=== PATIENT | male | born 1970 | race Caucasian/White ===

== ENCOUNTER 2024-02-12 22:24 | Emergency (ER) | payer SELFPAY ==
[~2024-02-12] VITALS: Ht 177.8 cm; Wt 84.0 kg
[2024-02-12 22:38] VITALS: O2SAT 98
[2024-02-13 04:44] VITALS: BP 140/80; PULSE 78; RESP 18; TEMP 98.3
== END 2024-02-13 04:45 | disposition home or self-care (01) ==
LOC: ER 22:24
DX: F10.129 Alcohol abuse with intoxication, unspecified (principal); F41.9 Anxiety disorder, unspecified; F31.9 Bipolar disorder, unspecified; F19.90 Other psychoactive substance use, unspecified, uncomplicated; Y90.9 Presence of alcohol in blood, level not specified
CPT/HCPCS: 82962; 99283